=== PATIENT | male | born 1955 | race African-American/Black ===

== ENCOUNTER 2019-01-20 01:17 | Emergency (ER) | payer BC, OTHER, MEDICAID ==
[~2019-01-20] VITALS: Ht 188 cm; Wt 86.0 kg
[2019-01-20] MEDS ORDERED: AMLO2.5T45 MT (01:25)
[2019-01-20] MEDS ORDERED: ATEN-42 PO (01:25)
[2019-01-20] MEDS ORDERED: HYDR12.529 MT (01:25)
[2019-01-20] MEDS ORDERED: HYDROCODONE/ACETAMINOPHEN 5/325MG TABLET PO ONE (03:30)
[2019-01-20 06:40] VITALS: BP 133/84
== END 2019-01-20 07:02 | disposition home or self-care (01) ==
LOC: ER 01:17
DX: M25.562 Pain in left knee (principal); I10 Essential (primary) hypertension; R73.03 Prediabetes; W01.0XXA Fall on same level from slipping, tripping and stumbling without subsequent striking against object, initial encounter; Y93.9 Activity, unspecified; Y92.9 Unspecified place or not applicable; Z96.653 Presence of artificial knee joint, bilateral
CPT/HCPCS: 73562; 99283; L1830